=== PATIENT | female | born 1945 | race Two or more races ===

== ENCOUNTER 2018-04-15 12:23 | Outpatient (CLI) | payer OTHER | END 2018-04-15 12:30 | disposition home or self-care (01) | LOC: RAD 12:23 | DX: K57.32 Diverticulitis of large intestine without perforation or abscess without bleeding (principal); R10.32 Left lower quadrant pain; Z01.811 Encounter for preprocedural respiratory examination ==

== ENCOUNTER 2018-04-17 12:15 | Inpatient (IN) | payer OTHER ==
[~2018-04-17] VITALS: Ht 152.4 cm; Wt 65.8 kg
[2018-04-17] MEDS ORDERED: NORVASC5 MG PO (13:03)
[2018-04-17] MEDS ORDERED: SYSTANE (13:04)
[2018-04-17] MEDS ORDERED: PROTONIX20 MG PO (13:05)
[2018-04-17] MEDS ORDERED: PROBIOTIC1 EAC1 PO (13:05)
[2018-04-26] MEDS ORDERED: PERCOCET 5-3251 EACH PO (09:42)
[2018-04-26] MEDS ORDERED: OMEPRAZOLE20 MG PO (09:42)
[2018-04-26] MEDS ORDERED: INTESTINEX680 M1 PO (09:42)
== END 2018-04-26 10:55 | disposition home or self-care (01) | DRG 331 ==
LOC: EDUNIT# 12:15 → SURH 04-23 05:16 → O/R 04-23 05:16 → SURG 04-23 07:00 → SURH 04-23 13:44
PROVIDERS: Surgery
PROC: 0DJD8ZZ Inspection of Lower Intestinal Tract, Via Natural or Artificial Opening Endoscopic (ICD-10-PCS; 2018-04-23)
PROC: 0DTN4ZZ Resection of Sigmoid Colon, Percutaneous Endoscopic Approach (ICD-10-PCS; principal; 2018-04-23 07:00)
DX: K57.32 Diverticulitis of large intestine without perforation or abscess without bleeding (principal)

== ENCOUNTER 2019-05-19 07:06 | Day surgery (SDC) | payer OTHER ==
[~2019-05-19 07:06] MED LIST: INTESTINEX680 M1 PO; NORVASC5 MG PO; OMEPRAZOLE20 MG PO; PERCOCET 5-3251 EACH PO; PROBIOTIC1 EAC1 PO; PROTONIX20 MG PO; SYSTANE
== END 2019-05-19 12:15 | disposition home or self-care (01) ==
LOC: AMB-ENDOS 07:06 → CIR.AMB 14:45
DX: D12.2 Benign neoplasm of ascending colon (principal)